=== PATIENT | female | born 1955 | race Caucasian/White ===

== ENCOUNTER → 2017-06-24 | Outpatient (CLI) | payer OTHER ==
[~2017-06-24] MED LIST: BARIUM SULFATE 176 GM BTL PO ONE; BARIUM SULFATE 340 GM POWD ONE; MULT-1335 PO; NAPR-1043 PO
--- NOTE | 2017-06-24 11:41 | RADIOLOGY IMAGING REPORT ---
FACILITY: [facility] - [place] PATIENT NAME: Yesenia Henry : 1955 MR: [id number] V: [id number] EXAM DATE: ORDERING PHYSICIAN: MILAGRO ORELLANA TECHNOLOGIST: Location: [facility] Patient: Yesenia Henry : 1955 Visit/Account:[id number] Date of Sevice: 06/24/2017 Study: CERVICAL SPINE MIN 4 VIEW Indication: Neck pain Comparison study: None Findings: AP lateral open mouth and bilateral oblique views of the neck demonstrates no evidence of a cute bony abnormality. There is no evidence of lytic or blastic bony lesions. There is narrowing of the lower bony neural f oramina noted. This can be further evaluated with CT or MRI scanning. IMPRESSION: No acute bony abnormality identified. There is no evidence of lytic or blastic bony lesi ons. There is narrowing of the lower cervical bony neural foramina bilaterally. Report Dictated By: Ganesh Fu at 06/24/2017 11:33 AM Report E-Signed By: Ganesh Fu at 06/24/2017 11:36 AM WSN:[id number]
--- NOTE | 2017-06-24 11:57 | RADIOLOGY IMAGING REPORT ---
FACILITY: [facility] - [place] PATIENT NAME: Yesenia Henry : 1955 MR: [id number] V: [id number] EXAM DATE: ORDERING PHYSICIAN: MILAGRO ORELLANA TECHNOLOGIST: Location: [facility] [place] Patient: Yesenia Henry : 1955 Visit/Account:[id number] Date of Sevice: 06/24/2017 EXAMINATION: Abdominal ultrasound complete HISTORY: Right-sided abdomen pain on and off since last October COMPARISON: None. FINDINGS: Gallbladder: No stones, wall thickening, pericholecystic fluid or sonographic Cantrell sign. Liver: Negative. Common duct: Mildly enlarged ranging in size between 4.1 and 7.5 mm Pancreas: Negative. Spleen: Normal measuring eight cm in length. Kidneys: Normal in size and echogenicity, the right measures 7.5 cm in length, and the left 10.7 cm. There is mild pelvocaliectasis bilaterally Upper abdominal aorta and IVC: Negative. Ascites: None. IMPRESSION: , Bile duct is mildly dilated ranging in size between 4.1 and 7.5 mm Mild pelvocaliectasis in the kidneys Report Dictated By: Marilyn Harp MD at 06/24/2017 11:49 AM Report E-Signed By: Marilyn Harp MD at 06/24/2017 11:52 AM WSN:[email or web address]
--- NOTE | 2017-06-24 16:46 | RADIOLOGY IMAGING REPORT ---
FACILITY: [facility] PATIENT NAME: Yesenia Henry : 1955 MR: [id number] V: [id number] EXAM DATE: ORDERING PHYSICIAN: MILAGRO ORELLANA TECHNOLOGIST: Location: [facility] Patient: Yesenia Henry : 1955 Visit/Account:[id number] Date of Sevice: 06/24/2017 Exam type: UPPER GI SERIES W/O AIR History: Left-sided abdomen pain, right-sided upper extremity numbness and tingling Comparison: None. Findings: Double contrast upper GI series was performed with thick and thin barium. There is a moderate amount of gastroesophageal reflux observed. No evidence of esophageal narrowing or mucosal erosion. No ab normality of the stomach duodenal bulb or duodenal C-loop was seen other than incidental small duoden al diverticulum. The fluoroscopy dose area product was 431.66 micro-Gold per meter squared IMPRESSION: 1. Moderate amount of gastroesophageal reflux although no evidence of esophageal narrowing or mucosa l erosion Report Dictated By: Marilyn Harp MD at 06/24/2017 4:16 PM Report E-Signed By: Marilyn Harp MD at 06/24/2017 4:42 PM WSN:[email or web address]
== END ==
LOC: US 01:16
PROVIDERS: ATTEND Family Medicine
DX: K21.9 Gastro-esophageal reflux disease without esophagitis (principal); M48.02 Spinal stenosis, cervical region; N13.30 Unspecified hydronephrosis
CPT/HCPCS: 72050; 74240; 76700

== ENCOUNTER → 2018-02-18 | Outpatient (CLI) | payer OTHER ==
[~2018-02-18] MED LIST changes: -BARIUM SULFATE 176 GM BTL PO ONE; -BARIUM SULFATE 340 GM POWD ONE
--- NOTE | 2018-02-19 08:34 | RADIOLOGY IMAGING REPORT ---
FACILITY: [facility] - [place] PATIENT NAME: LYNN SCHULTZ : [id number] MR: [id number] V: [id number] EXAM DATE: [id number] ORDERING PHYSICIAN: MILAGRO ORELLANA TECHNOLOGIST: Cassandra Ordaz PROCEDURE:BILATERAL DIGITAL SCREENING MAMMOGRAM WITH CAD ASSISTED INTERPRETATION & 3D TOMOSYNTHESIS COMPARISON:Prior mammograms 02/06/17, 01/30/16, 01/24/15, 04/20/13. INDICATIONS:Screening FINDINGS: Extremely dense heterogeneous fibroglandular tissue is seen throughout the breasts. The parenchymal pattern has remained stable allowing for difference in mammographic technique & patient positioning. There is no evidence of malignant appearing mass, malignant appearing calcifications or other secondary sign of malignancy in either breast. DIAGNOSTIC CATEGORY 1--NEGATIVE. RECOMMENDATIONS: ROUTINE MAMMOGRAM AND CLINICAL EVALUATION. IMPRESSION: BIRADS 1: Negative. No significant abnormality is seen. Dictated by: Marilyn Harp M.D. on 02/18/2018 at 15:56 Transcribed by: ALIN on 02/18/2018 at 16:04 Approved by: Marilyn Harp M.D. on 02/19/2018 at 8:32 [facility]
== END ==
LOC: MAMO 13:27
PROVIDERS: ATTEND Family Medicine
DX: Z12.31 Encounter for screening mammogram for malignant neoplasm of breast (principal)
CPT/HCPCS: 77063; 77067